=== PATIENT | female | born 1965 | race Caucasian/White ===

== ENCOUNTER → 2017-05-13 | Outpatient (REF) ==
[~2017-05-13] MED LIST: ALP25 PO; ALPR-1 PO; CEP500 PO; FAMO1TAB79 PO; IBUP-1618 PO; LEVO25TA56 PO; LEVO25TA61 PO; MULT1TAB54 PO; RAN150 PO; SERT25TA90 PO; SIL20T TOP
[2017-05-13 09:14] LABS: LDL CHOLESTEROL 104 mg/dl
== END ==
DX: Z02.9 Encounter for administrative examinations, unspecified (principal)

== ENCOUNTER → 2017-08-10 | Outpatient (CLI) | payer OTHER | LOC: LAB 14:29 | PROVIDERS: ATTEND Family Medicine | DX: E03.4 Atrophy of thyroid (acquired) (principal); I10 Essential (primary) hypertension | CPT/HCPCS: 36415; 82310; 82374; 82435; 82565; 82947; 84132; 84295; 84443; 84520 ==

== ENCOUNTER → 2017-11-23 | Outpatient (CLI) | payer OTHER | LOC: LAB 14:24 | PROVIDERS: ATTEND Family Medicine | DX: E87.6 Hypokalemia (principal); E03.4 Atrophy of thyroid (acquired) | CPT/HCPCS: 36415; 82310; 82374; 82435; 82565; 82947; 84132; 84295; 84443; 84520 ==

== ENCOUNTER → 2018-02-02 | Outpatient (CLI) | payer OTHER | LOC: LAB 14:22 | PROVIDERS: ATTEND Family Medicine | DX: E87.6 Hypokalemia (principal); E03.4 Atrophy of thyroid (acquired) | CPT/HCPCS: 36415; 82310; 82374; 82435; 82565; 82947; 84132; 84295; 84443; 84520 ==